=== PATIENT | male | born 2000 | race Caucasian/White ===

== ENCOUNTER 2021-05-06 23:30 | Emergency (ER) | payer OTHER ==
[~2021-05-06] VITALS: Ht 182.9 cm; Wt 83.9 kg
[2021-05-07] MEDS ORDERED: DOXYCYCLINE 10100 MG PO ×2 (00:35→11:53)
[2021-05-07] MEDS ORDERED: TRAMADOL 50 MG50 MG PO (00:37)
[2021-05-07 00:50] VITALS: BP 137/95
== END 2021-05-07 00:50 | disposition home or self-care (01) ==
LOC: M.ERS 23:30
DX: M79.89 Other specified soft tissue disorders (principal)